=== PATIENT | male | born 1960 | race Two or more races ===

== ENCOUNTER → 2023-08-28 | Outpatient (CLI) | payer OTHER | END | disposition home or self-care (01) | LOC: TOM 09:59 | DX: K43.9 Ventral hernia without obstruction or gangrene (principal) ==

== ENCOUNTER 2025-06-13 09:49 | Outpatient (CLI) | payer OTHER | END 2025-06-13 09:52 | disposition home or self-care (01) | LOC: TOM 09:49 | PROVIDERS: ATTEND Internal Medicine | DX: R07.1 Chest pain on breathing (principal); R13.10 Dysphagia, unspecified ==